=== PATIENT | female | born 1930 | race Caucasian/White ===

== ENCOUNTER 2021-10-22 10:44 | Outpatient (CLI) | payer MEDICARE, OTHER ==
--- NOTE | 2021-10-22 14:51 | XRAY Report ---
PROCEDURE: Chest 2 View X-Ray INDICATIONS: SOA, ORTHOPNEA TECHNIQUE: 2 view(s) of the chest. COMPARISON: None. FINDINGS: Surgical changes and devices: None. Lungs and pleura: Right hemidiaphragm elevation. Bilateral basilar opacities are most likely atelect asis. No pleural effusions or pneumothorax. Lungs are clear. Mediastinum: Mediastinal contours are normal. Heart size is normal. Moderate atherosclerotic calci fications of aorta. There is a [id number] hiatal hernia. Bones and chest wall: No suspicious bony abnormalities. Soft tissues appear unremarkable. 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 IMPRESSION: 1. No acute cardiac pulmonary disease. 2. Bibasilar atelectasis. 3. Right hemidiaphragm elevation. 4. Adcprqkt-[id number]-[id number] sized hiatal hernia. Reviewed by: Joby Jaramillo MD on 10/22/2021 2:50 PM PST Approved by: Joby Jaramillo MD on 10/22/2021 2:50 PM PST Station ID: [id number]
== END 2021-10-22 10:45 | disposition home or self-care (01) ==
LOC: DI.N 10:44
PROVIDERS: ATTEND Physician Assistant
DX: J44.9 Chronic obstructive pulmonary disease, unspecified (principal); I48.91 Unspecified atrial fibrillation; I50.9 Heart failure, unspecified; J98.11 Atelectasis; K44.9 Diaphragmatic hernia without obstruction or gangrene